=== PATIENT | female | born 1955 | race Caucasian/White ===

== ENCOUNTER 2018-09-28 10:05 | Emergency (ER) | payer OTHER ==
[~2018-09-28] VITALS: Ht 154.9 cm; Wt 43.1 kg
[2018-09-28] MEDS ORDERED: NOHOMEMEDICATIONS (10:36)
[2018-09-28 10:41] LABS: ABSOLUTE NEUTROPHILS 7.4 thou/uL (1.4-8.2); BASOPHILS 1.2 % (0.0-2.0); EOSINOPHILS 0.9 % (0.0-3.0); HEMATOCRIT 38.4 % (37.0-47.0); HEMOGLOBIN 12.9 gm/dL (12.0-15.0); LYMPHOCYTES 20.1 % (24.0-44.0); MCH 31.6 pg (26.0-34.0); MCHC 33.5 g/dL (28.0-37.0); MCV 94.3 fL (80.0-100.0); PLATELET COUNT 309 thou/uL (150-400); POLYS 67.8 % (36.0-66.0); RBC 4.07 mil/uL (4.20-5.00); RDW 14.2 % (10.5-14.5); WBC 10.9 thou/uL (4.0-11.0)
[2018-09-28 10:45] LABS: CALCIUM 10.6 mg/dL (8.5-10.1); POTASSIUM 3.3 mmol/L (3.5-5.1)
[2018-09-28 10:51] LABS: ALBUMIN 3.7 g/dL (3.4-5.0); TOTAL BILIRUBIN 0.4 mg/dL (<0.1-1.0); TOTAL PROTEIN 7.7 g/dL (6.4-8.2)
[2018-09-28] MEDS ORDERED: AUGMENTIN 500-1 EACH PO (10:59)
== END 2018-09-28 11:48 | disposition home or self-care (01) ==
LOC: ER 10:05
PROVIDERS: Physician Assistant
DX: S60.311A Abrasion of right thumb, initial encounter (principal); L03.011 Cellulitis of right finger; K50.90 Crohn's disease, unspecified, without complications; Z88.5 Allergy status to narcotic agent; W55.03XA Scratched by cat, initial encounter; Y93.89 Activity, other specified; Y92.89 Other specified places as the place of occurrence of the external cause; Y99.8 Other external cause status

== ENCOUNTER 2018-10-14 02:27 | Emergency (ER) | payer OTHER ==
[~2018-10-14] VITALS: Ht 157.5 cm; Wt 43.1 kg
[~2018-10-14 02:27] MED LIST: AUGMENTIN 500-1 EACH PO; NOHOMEMEDICATIONS
[2018-10-14 02:36] VITALS: BP 117/74
[2018-10-14] MEDS ORDERED: CENTRUM SILVER1 EAC4 PO (02:42)
[2018-10-14] MEDS ORDERED: PRILOSEC 10MG C10 MG PO (02:42)
== END 2018-10-14 03:12 | disposition home or self-care (01) ==
LOC: ER 02:27
DX: M79.672 Pain in left foot (principal); K50.90 Crohn's disease, unspecified, without complications; Z88.5 Allergy status to narcotic agent; Z88.8 Allergy status to other drugs, medicaments and biological substances; W18.39XA Other fall on same level, initial encounter; Y92.89 Other specified places as the place of occurrence of the external cause; Y93.89 Activity, other specified; Y99.8 Other external cause status